=== PATIENT | male | born 2000 | race Caucasian/White ===

== ENCOUNTER 2021-11-05 20:59 | Emergency (ER) | payer SELFPAY ==
[2021-11-05 21:02] VITALS: BP 133/82; PULSE 82; RESP 16; TEMP 37.9; O2SAT 100; BMI 23.6
[2021-11-05 21:05] VITALS: BMI 23.6
--- NOTE | 2021-11-05 21:06 | XR_ITS ---
PROCEDURE INFORMATION: Exam: XR Left Knee Exam date and time: 11/05/2021 9:06 PM Age: 21 years old Clinical indication: Pain; Left; Patient HX: PT injured knee while playing volleyball; Additional info: Accident TECHNIQUE: Imaging protocol: XR Left knee. Views: 3 views. COMPARISON: No relevant prior studies available. FINDINGS: Bones/joints: Osseous anatomic alignment is well preserved. No acutely displaced fracture or dislocation. Joint spaces are well preserved. Soft tissues: No significant soft tissue swelling. IMPRESSION: No acute findings.
--- NOTE | 2021-11-05 21:12 | PC.NURSE ---
Pt gone to RAD
--- NOTE | 2021-11-05 21:19 | PC.NURSE ---
Pt back from RAD
[2021-11-05 21:30] VITALS: BP 157/88; PULSE 71; O2SAT 99
[2021-11-05 22:59] VITALS: BP 124/75; PULSE 70; RESP 16; TEMP 37.1; O2SAT 99
--- NOTE | 2021-11-05 23:00 | [facility].EDGENADL ---
ED Disposition Clinical Impression: Knee injury Qualifiers: Encounter type: initial encounter Laterality: left Qualified Code(s): S89.92XA - Unspecified injury of left lower leg, initial encounter Disposition: Home, Self-Care Condition on Discharge: Good Additional Instructions: Please rest, ice, elevate your knee and wear knee brace. Return to the emergency department with worsening pain, swelling or any other new or concerning symptoms. Please call orthopedics and your primary care physician as soon as possible and schedule an appointment. Referrals: Azar Vences MD [Staff Physician] - Provider,MD Mallika [Primary Care Provider] - - Critical Care Critical Care Time: No Attestation: On 11/05/21, the high probability of a clinically significant, sudden or life threatening deterioration of the following system(s) required my full and direct attention, intervention and personal management. The time I documented below is in addition to time spent performing reported procedures but includes the following listed in this critical care notation. Medical Decision Making - Martin Inquiry Pt receiving controlled substance: No Vital Signs: 11/05/21 21:02 11/05/21 21:30 11/05/21 22:59 Temperature 100.2 F H 98.7 F Temperature Source Oral Oral Pulse Rate 71 70 Pulse Rate [Right] 82 Respiratory Rate 16 16 Blood Pressure 157/88 H 124/75 Blood Pressure [Right Arm] 133/82 Blood Pressure Mean [Right Arm] 99 02 Sat by Pulse Oximetry 100 99 Oxygen Delivery Method Room Air Orders (Tests/Meds): ED MEDICATIONS Discontinued Medications Generic Name Dose Route Start Last Admin Trade Name Freq PRN Reason Stop Dose Admin Acetaminophen 1,000 mg 11/05/21 21:08 11/05/21 21:11 Acetaminophen 500mg Tab PO 11/05/21 21:09 1,000 mg ONCE ONE Administration Ibuprofen 600 mg 11/05/21 21:08 11/05/21 21:11 Ibuprofen 600 Mg Tablet PO 11/05/21 21:09 600 mg ONCE ONE Administration Medical Decision Narrative: 21-year-old male presents emergency department after playing volleyball landing on his left lower extremity with pop in the knee. Patient has not been weightbearing since that time. Physical examination shows neurovascularly intact patient with active range of motion intact, with negative Tori's and Bruce's testing, with pain with varus stress testing with concern for potential LCL injury. Plain films not showing any fracture or dislocation. Patient was hemodynamically stable in the emergency department and borderline febrile, favored not to be related to current presentation. Was verbalized to patient. Patient was given crutches, knee brace and referral to orthopedics and return precautions. General Adult HPI - General Chief complaint: Extremity Injury, Lower Stated complaint: [id number]@2030 left leg injury Time Seen by Provider: 11/05/21 21:30 Mode of Arrival: Wheelchair Limitations: No Limitations Description of Symptoms (Recalled from ER Triage Doc. by RN): pt states playing volleyball and fell landing on lt leg. pt c/o lt knee pain - History of Present Illness HPI narrative: 21-year-old male presents emergency department after he was playing volleyball today and landed on his left lower extremity hearing a pop in his knee stating that he has had lateral knee pain since that time and has not been able to bear weight. Patient has not had any following and has been able to bear weight. Patient states that he has had surgery for pectus excavatum and had a hernia surgery but denies taking any medications and denies allergies. Patient denies smoking, drinking or recreational drug use. Patient has no other complaints today. - Related Data Allergies Allergy/AdvReac Type Severity Reaction Status Date / Time No Known Allergies Allergy Verified 11/05/21 21:06 [facility] History - Hepatitis A Screen Attestation statement:: This patient has been screened for Hepatit
== END 2021-11-05 23:09 | disposition home or self-care (01) ==
PROVIDERS: Emergency Provider Student in an Organized Health Care Education/Training Program
DX: S89.92XA Unspecified injury of left lower leg, initial encounter (principal); W19.XXXA Unspecified fall, initial encounter; Y93.68 Activity, volleyball (beach) (court)
CPT/HCPCS: 73562; 99283